=== PATIENT | female | born 1990 | race Caucasian/White ===

== ENCOUNTER 2020-03-28 21:55 | Emergency (ER) | payer MEDICAID, SELFPAY ==
[2020-03-28 22:10] VITALS: BP 148/74; PULSE 98; RESP 16; TEMP 37.1; O2SAT 97; BMI 33.4
--- NOTE | 2020-03-29 01:16 | CT_ITS ---
EXAMINATION: CT MASTOIDS WITHOUT CONTRAST CLINICAL INFORMATION: Right mastoid tenderness. COMPARISON: None TECHNIQUE: Contiguous helical images of the mastoids were obtained without IV contrast. Multiplanar reconstructions were performed. FINDINGS: No acute osseous abnormalities are demonstrable. The mastoid air cells are clear. The visualized portions of the brain are unremarkable. CT/CT mastoid IMPRESSION: No acute abnormalities demonstrable.
--- NOTE | 2020-03-29 01:18 | ED.EAR ---
HPI - Ear Problem General Chief complaint: Ear Problems Stated complaint: EAR PAIN Time Seen by Provider: 03/29/20 01:10 Source: patient Mode of arrival: ambulatory Limitations: no limitations History of Present Illness HPI Narrative: Patient comes to emergency room complaining of mastoid bone tenderness in the right side. It started approximately 2 days ago. Patient denies any ear drainage, no toothache. Patient has noticed that behind her ears very tender and swollen and in the front part of the earlobe as well. Denies any fever chills. MD Complaint: ear pain Related Data Previous Rx's Medication Instructions Recorded amoxicillin-pot clavulanate 1 tab PO Q12H #20 tab 03/29/20 [Augmentin] ibuprofen 600 mg PO TID PRN #14 tab 03/29/20 Allergies Allergy/AdvReac Type Severity Reaction Status Date / Time No Known Allergies Allergy Verified 03/28/20 22:12 [No Known Allergies*] Review of Systems Review of Systems: Constitutional : No Weight loss, No Fever, No Chills, No Night Sweats, No Fatigue, No Malaise ENT/Mouth : No Hearing loss, no ear pain, complaining of mastoid bone tenderness, No Nasal Congestion, No Sinus Pain, No Hoarseness, No sore throat, No Rhinorrhea, No Swallowing Difficulty Eyes: No Eye Pain, No Swelling, No Redness, No Foreign Body, No Discharge, No Vision Changes Cardiovascular : No Chest Pain, No SOB, No Dyspnea on Exertion, No Orthopnea, No Edema, No Palpitations Respiratory : No Cough, No Sputum, No Wheezing, No Smoke Exposure, No Dyspnea Gastrointestinal : No Nausea, No Vomiting, No Diarrhea, No Constipation, No abdominal Pain, No Hematochezia, No Melena Genitourinary : no irregular bleeding, No Dysuria, No Urinary Frequency, No Hematuria, No Urinary Incontinence, No Urgency, No Flank Pain, No Urinary Flow Changes, No Hesitancy Musculoskeletal : No joint pain, No Myalgias, No Joint Swelling Skin : No Skin Lesions, No rash Neuro : No Weakness, No Numbness, No Paresthesias, No Loss of Consciousness, No Dizziness, No Headache Psych : No Anxiety/Panic, No Depression, No SI/HI/AH/VH, No Social Issues, Heme/Lymph: No Bruising, No Bleeding,No Lymphadenopathy Endocrine : No Polyuria, No Polydipsia, No Temperature Intolerance PMFSH Past Medical History Medical History Atrophy of right kidney Social History Social History Advance Directives: No Advance Directives Information Provided: No Physical Exam Vital Signs: Vital Signs: Last Vital Signs Temp 98.7 F 03/28/20 22:10 Pulse 98 03/28/20 22:10 Resp 16 03/28/20 22:10 BP 148/74 H 03/28/20 22:10 Pulse Ox 97 03/28/20 22:10 Body Mass Index 33.4 Appearance: Alert. Oriented X3. No acute distress. Eyes: Pupils equal, round and reactive to light. ENT: Pharynx normal. Very mild erythema in the room right ear canal, both tympanic membranes within normal limits, patient has tenderness over the right mastoid bone Neck: Normal inspection. Neck supple. No lymph nodes noted. No crepitus CVS: Normal heart rate and rhythm. Pulses normal. Normal S1 and S2 Respiratory: No respiratory distress. Breath sounds normal. No Wheezing. No rales Abdomen: Soft and nontender. No rigidity. No distention. good BS x4 Skin: Skin warm and dry. Normal skin color. Normal skin turgor. Extremities: No lower extremity edema. No lower extremity edema. No Lacerations. No Rash Neuro: Oriented X 3. No motor deficit. No sensory deficit. Moving all extermities. No slurred speech. Course Course Course Narrative: I discussed the CT scan with the patient, no acute abnormalities, however given the patient's physical exam of miles erythema in the ear canal and auricular pain, will go ahead and treat her with antibiotics. Patient agrees with plan Discharge Plan Discharge Clinical Impression: Otalgia of right ear Patient Disposition: Home, Self-Care Instructions: Earache (ED) Additional Instructions: Please follow-up with your primary care physician tomorrow. If you have any worsening or new symptoms, please return to the emergency room or call 911 Prescriptions: New amoxicillin-pot clavulanate [Augmentin] 500-125 mg tablet 1 tab PO Q12H Qty: 20 RF: 0 ibuprofen 600 mg tablet 600 mg PO TID PRN (Reason: fever or pain) Qty: 14 RF: 0
[2020-03-29] MEDS: Amoxicillin/Potassium Clav 500 MG TABLET PO (02:49)
[2020-03-29] MEDS: Ibuprofen 600 MG TABLET PO (02:49)
[2020-03-29 02:53] VITALS: PULSE 76; RESP 18
== END 2020-03-29 02:54 | disposition home or self-care (01) ==
PROVIDERS: Emergency Provider Emergency Medicine; PCP Pediatrics
DX: H92.01 Otalgia, right ear (principal)
CPT/HCPCS: 70481; 99283; 99284

== ENCOUNTER 2021-11-28 11:43 | Outpatient (REF) | payer MEDICAID, SELFPAY ==
[2021-11-29 08:42] LABS: CT PCR NOT DETECTED (Not Detect.); NG PCR NOT DETECTED (Not Detect.)
[2021-11-29 10:49] LABS: BV Int Neg Control Negative (Negative); BV Int Pos Control Positive (Positive)
[2021-12-01 10:16] LABS: HPV mRNA E6/E7 rflx Not Detected (Not Detected)
== END 2021-11-28 11:44 | disposition home or self-care (01) ==
LOC: HO.LAB 11:43
PROVIDERS: Visit Provider Advanced Practice Midwife
DX: Z01.419 Encounter for gynecological examination (general) (routine) without abnormal findings (principal); Z11.51 Encounter for screening for human papillomavirus (HPV); Z11.3 Encounter for screening for infections with a predominantly sexual mode of transmission
CPT/HCPCS: 87480; 87491; 87510; 87591; 87624; 87660; 88142

== ENCOUNTER 2023-05-30 23:39 | Emergency (ER) | payer OTHER, SELFPAY ==
--- NOTE | ~2023-05-30 | XR_ITS ---
EXAMINATION: XR CHEST CLINICAL INFORMATION: Cough. COMPARISON: None available. TECHNIQUE: Frontal view of the chest was obtained. FINDINGS: The cardiomediastinal silhouette is normal. There is patchy right mid lung field infiltrative change. There appears to be minimal scarring at the right lung base. The lungs are otherwise clear. The bony structures and soft tissues are unremarkable. XR/XR chest 1V IMPRESSION: Patchy right mid lung field infiltrative change most consistent with pneumonia..
[2023-05-31 00:31] VITALS: BP 123/57; PULSE 106; RESP 16; TEMP 37.3; O2SAT 97; BMI 26.6
--- NOTE | 2023-05-31 00:46 | MHC.EDTECH ---
Patient brought into triage area,labs,strep,covid,and flu obtained and sent to lab.
[2023-05-31 00:52] LABS: MANUAL DIFF FLAG NO
[2023-05-31 00:58] LABS: IDNOW Serial# 08D9AD1C; Strep A Nucleic Acid Positive (Negative)
[2023-05-31 01:02] LABS: Basophils Absolute Auto 0.1 X10*3/uL (0.0-0.2); Basophils Percent Auto 0.3 % (0-2); Eosinophils Absolute Auto 0.1 X10*3/uL (0.0-0.4); Eosinophils Percent Auto 0.6 % (0-4); Hematocrit 42.9 % (37.0-47.0); Hemoglobin 14.5 g/dl (12.0-16.0); Imm Gran Abs Auto 0.12 X10*3/uL (0.00-0.03); Imm Gran Pct Auto 0.7 % (0.0-0.4); Lymphocytes Absolute Auto 1.1 X10*3/uL (1.2-4.9); Lymphocytes Percent Auto 5.9 % (20-40); Mean Corpuscular HGB Conc 33.8 g/dl (31.0-35.0); Mean Corpuscular Hemoglobin 28.5 pg (27.0-33.0); Mean Corpuscular Volume 84.4 fL (80.0-98.0); Mean Platelet Volume 10.8 fL (9.4-12.3); Monocytes Absolute Auto 1.2 X10*3/uL (0.1-1.2); Monocytes Percent Auto 6.9 % (2-11); Neutrophils Absolute Auto 15.2 x10*3/uL (2.0-8.3); Neutrophils Percent Auto 85.6 % (45-73); Platelet Count 256 X10*3/uL (160-400); Red Blood Count 5.08 X10*6/uL (4.20-5.50); Red Cell Distribution Width 14.2 % (11.0-16.0); White Blood Count 17.8 X10*3/uL (4.8-10.8)
[2023-05-31 01:08] LABS: Anion Gap 14 (12-20); Blood Urea Nitrogen 10 mg/dL (9-16); Calcium 9.4 mg/dL (8.4-10.2); Carbon Dioxide 25 mmol/L (22-29); Chloride 103 mmol/L (96-108); Creatinine Clr Calc Pharmacy 94.3; Estimated Glomerular Filt Rate > 60; Glucose Random 108 mg/dL (60-115); Potassium 3.8 mmol/L (3.3-5.1); Sodium 138 mmol/L (135-145)
[2023-05-31 01:14] LABS: COVID-19 Test Negative (Negative); IDNOW Serial# 152EDE1D; IDNOW Serial# 9DB6401D; Influenza A Negative (Negative); Influenza B2 Negative (Negative)
--- NOTE | 2023-05-31 01:38 | ED.GENADULT ---
HPI - General Adult General Chief complaint: Upper Respiratory Symptoms Stated complaint: Sore throat Time Seen by Provider: 05/31/23 01:32 Source: patient, RN notes reviewed and old records reviewed Mode of arrival: ambulatory Limitations: no limitations History of Present Illness HPI narrative: 32-year-old female presents for evaluation of sore throat, body aches and weakness. She reports that her symptoms started when she woke up this morning, less than 24 hours ago. She endorses some nausea without vomiting. Denies any sick contacts or recent travel Denies any chest pain or abdominal pain Has not taken any medications to help alleviate her symptoms Related Data Previous Rx's Medication Instructions Recorded valacyclovir 1 gram tablet 1,000 mg PO DAILY #30 tabs 11/28/21 amoxicillin 875 mg-potassium 1 tab PO BID #13 tabs 05/31/23 clavulanate 125 mg tablet azithromycin 250 mg tablet 250 mg PO DAILY 4 days #4 tabs 05/31/23 Allergies Allergy/AdvReac Type Severity Reaction Status Date / Time No Known Allergies Allergy Verified 05/31/23 00:30 [No Known Allergies*] Review of Systems Constitutional: Constitutional: Reports body ache(s), Reports chills, Reports fever(s), Reports malaise and Reports weakness ENT: Reports sore throat Cardiovascular: Cardiovascular: Denies chest pain and Denies dyspnea Respiratory: Respiratory: Reports cough and Denies dyspnea Gastrointestinal: Gastrointestinal: Reports abdominal pain, Reports nausea and Denies vomiting Integumentary/Breasts: Skin/Breast: Denies rash Neurologic: Reports weakness PMFSH Past Medical History Medical History (Updated 05/31/23 @ 01:40 by Mauricio Higgins) Carpal tunnel syndrome on right Atrophy of right kidney Surgical History (Updated 11/28/21 @ 09:34 by Myriam Morales MA) History of tonsillectomy and adenoidectomy H/O kidney removal Family History Family History (Updated 11/28/21 @ 09:35 by Myriam Morales MA) Mother Non-Hodgkin lymphoma Father Non-Hodgkin lymphoma Social History Social History (Updated 11/28/21 @ 09:35 by Myriam Morales MA) Patient Tobacco Use Status: Never used Tobacco Advance Directives: No Advance Directives Information Provided: Yes Physical Exam ED Vital Signs: Vital Signs - 24 hr 05/31/23 00:31 Temperature 99.1 F Pulse Rate 106 H Respiratory Rate 16 Blood Pressure 123/57 L Pulse Oximetry 97 Oxygen Delivery Method Room Air BMI result Body Mass Index 26.6 Const General: healthy appearing, comfortable, no acute distress, alert and awake Nutritional Appearance: well nourished Orientation/consciousness: patient oriented x3 HENMT Other: Erythematous retropharynx with bilateral tonsillar hypertrophy, whitish exudates noted on the right tonsil. No evidence of peritonsillar abscess Head: Yes normocephalic and Yes atraumatic Eyes Eyelids: Yes eyelids normal Conjunctivae: conjunctivae normal Sclerae: sclerae normal Corneas: corneas normal Pupils: Equal, round and reactive pupils present EOM: EOMs intact bilaterally Neck Neck: Yes full ROM Resp Effort & Inspection: normal respiratory effort, able to speak in complete sentences, no audible wheezes and not labored Auscultation: clear to auscultation bilaterally Cardio Rate: regular rate Rhythm: regular rhythm GI Inspection: No distended Palpation (GI): Soft to palpation, not firm, nontender, no guarding and not rigid Skin General skin exam: elasticity normal Neuro General: patient oriented x3 Cranial nerves: Yes Equal, round and reactive pupils present and Yes Bilaterally intact EOM present Cognition (Neuro): normal cognition Extrem Other: Moving all extremities well without any obvious deformities Medical Decision Making Medical Decision Making [facility] Narrative: Flu-like symptoms. She had labs that were significant for leukocytosis and left shift, no other significant CBC or chemistry findings. The patient did test positive for strep pharyngitis. She also has a right middle lung field infiltrate on x-ray. She has not hypoxic or tachypneic. No evidence of respiratory distress. The sciatica. Will discharge her with Augmentin which would cover community-acquired pneumonia as well as strep pharyngitis and azithromycin to cover atypical pneumonia Differential Diagnosis Differential Diagnoses: The differential diagnosis associated with the presentation includes Community-acquired pneumonia Pharyngitis Upper respiratory infection Strep pharyngitis Influenza COVID-19 Admission/Observation Consideration of admission/observation: Escalation of care including admission/observation considered Patient has both community-acquired pneumonia and strep pharyngitis, admission was considered but ultimately the patient is able tolerate p.o. antibiotics and she is not in any respiratory distress. Lab Data [facility] Lab Attestation statement: I reviewed the patient's lab results. Leukocytosis with a white count 17.8 and a notable left shift. No significant anemia. No electrolyte abnormalities 05/31/23 00:42 05/31/23 00:42 Labs: Lab Results 05/31/23 Range/Units 00:42 WBC 17.8 H (4.8-10.8) X10*3/uL RBC 5.08 (4.20-5.50) X10*6/uL Hgb 14.5 (12.0-16.0) g/dl Hct 42.9 (37.0-47.0) % MCV 84.4 (80.0-98.0) fL MCH 28.5 (27.0-33.0) pg MCHC 33.8 (31.0-35.0) g/dl RDW 14.2 (11.0-16.0) % Plt Count 256 (160-400) X10*3/uL MPV 10.8 (9.4-12.3) fL Immature Gran % (Auto) 0.7 H (0.0-0.4) % Neut % (Auto) 85.6 H (45-73) % Lymph % (Auto) 5.9 L (20-40) % [place] % (Auto) 6.9 (2-11) % Eos % (Auto) 0.6 (0-4) % Baso % (Auto) 0.3 (0-2) % Lymph # (Auto) 1.1 L (1.2-4.9) X10*3/uL [place] # (Auto) 1.2 (0.1-1.2) X10*3/uL Eos # (Auto) 0.1 (0.0-0.4) X10*3/uL Baso # (Auto) 0.1 (0.0-0.2) X10*3/uL Abs Immat Gran (auto) 0.12 H (0.00-0.03) X10*3/uL Absolute Neuts (auto) 15.2 H (2.0-8.3) x10*3/uL Absolute Nucleated RBC 0.000 (0.0-0.012) X10*3/uL Nucleated RBC % (auto) 0.0 (0.0-0.2) /100WBC Sodium 138 (135-145) mmol/L Potassium 3.8 (3.3-5.1) mmol/L Chloride 103 (96-108) mmol/L Carbon Dioxide 25 (22-29) mmol/L Anion Gap 14 (12-20) BUN 10 (9-16) mg/dL Creatinine 0.90 (0.5-1.4) mg/dL Estim Creat Clear Calc 94.3 Estimated GFR > 60 Random Glucose 108 (60-115) mg/dL Calcium 9.4 (8.4-10.2) mg/dL COVID-19 (RAEANN) Negative (Negative) COVID-19 Clin Com See Note Influenza Type A (JARETH) Negative (Negative) Influenza Type B (JARETH) Negative (Negative) Influenza A & B Note See Note S. pyogenes GrpA JARETH Positive A (Negative) Independent Interpretation I performed an independent interpretation of an: Plain X-Ray (Agree with Radiology interpretation, appreciate right midlung PNA) Radiology Impression Discussion of test interpretation with radiology: I have reviewed the radiologist's reading. (Findings consistent with right mid lung pneumonia) Discharge Plan Discharge Clinical Impression: Community acquired pneumonia, Acute streptococcal pharyngitis Patient Disposition: Home, Self-Care Instructions: Strep Throat (ED), Community Acquired Pneumonia (ED) Additional Instructions: Your workup in the ER today was significant for a right-sided pneumonia. You also tested positive for strep pharyngitis Take Augmentin twice daily for the next 7 days Take azithromycin daily for the next 4 days starting tomorrow, Friday as your 1st dose was given in the ER today Drink lots of fluids Use Motrin/Tylenol for fevers, body aches Follow-up with your doctor or return sooner for new or worsening symptoms Prescriptions: New azithromycin 250 mg tablet 250 mg PO DAILY 4 Days Qty: 4 0RF Rx Instructions: start on day 2 of therapy amoxicillin-pot clavulanate 875-125 mg tablet 1 tab PO BID Qty: 13 0RF No Action valacyclovir 1 gram tablet 1,000 mg PO DAILY Qty: 30 1RF Rx Instructions: take daily for 5 days for outbreak Stand Alone Forms: Work/School Release
[2023-05-31] MEDS: Azithromycin 500 MG TABLET PO (02:03)
[2023-05-31] MEDS: Amoxicillin/Potassium Clav 875 MG TABLET PO (02:03)
[2023-05-31] MEDS: Ibuprofen 600 MG TABLET PO (02:03)
--- NOTE | 2023-05-31 02:12 | PC.NURSE ---
pt medicated according to mar. pt calm and cooperative pt ambulatory at discharge provided with discharge packet verbalized understanding of discharge plan
== END 2023-05-31 02:13 | disposition home or self-care (01) ==
PROVIDERS: Emergency Provider Internal Medicine
DX: J18.9 Pneumonia, unspecified organism (principal); J02.0 Streptococcal pharyngitis; J02.9 Acute pharyngitis, unspecified; D72.829 Elevated white blood cell count, unspecified
CPT/HCPCS: 36415; 71045; 80048; 85025; 87502; 87635; 87651; 99283; 99284

== ENCOUNTER 2023-09-14 05:54 | Emergency (ER) | payer OTHER, SELFPAY ==
[2023-09-14 05:58] VITALS: BP 107/54; PULSE 92; RESP 18; TEMP 36.8; O2SAT 96; BMI 25.8
[2023-09-14 06:16] LABS: IDNOW Serial# 08D9AD1C; Strep A Nucleic Acid Positive (Negative)
--- NOTE | 2023-09-14 07:11 | ED_ITS ---
HPI - General Adult General Chief complaint: Upper Respiratory Symptoms Stated complaint: strep throat? Time Seen by Provider: 09/14/23 07:11 Source: patient Mode of arrival: ambulatory Limitations: no limitations History of Present Illness ED Provider: Kyra Garibay NP [facility] narrative: Patient is a 32-year-old female presenting to the emergency department with complaint of sore throat for the past 2 days, nausea since yesterday. Reports coworkers sick with similar symptoms. Feels similar to previous episodes of strep pharyngitis. Denies any cough, shortness of breath, vomiting or diarrhea. Denies fevers. Denies difficulty swallowing. MD complaint: sore throat Onset (ago): day(s) Quality: burning Pain Consistency: constant Relieving factors: none Exacerbating factors: eating Associated symptoms: nausea/vomiting (+nausea, -vomiting) Related Data Previous Rx's ?Medication ?Instructions ?Recorded valacyclovir 1 gram tablet 1,000 mg PO DAILY #30 tabs 11/28/21 amoxicillin 875 mg-potassium 1 tab PO BID #13 tabs 05/31/23 clavulanate 125 mg tablet azithromycin 250 mg tablet 250 mg PO DAILY 4 days #4 tabs 05/31/23 penicillin V potassium 500 mg 500 mg PO BID #20 tabs 09/14/23 tablet Allergies Allergy/AdvReac Type Severity Reaction Status Date / Time No Known Allergies Allergy Verified 09/14/23 06:00 [No Known Allergies*] Review of Systems Review of Systems: As per HPI. Yes all other systems are reviewed and are negative Constitutional: Constitutional: Reports as per HPI [facility] Past Medical History Medical History (Updated 09/14/23 @ 07:14 by Ina Garibay NP) Carpal tunnel syndrome on right Atrophy of right kidney Surgical History (Updated 11/28/21 @ 09:34 by Myriam Morales MA) History of tonsillectomy and adenoidectomy H/O kidney removal Family History Family History (Updated 11/28/21 @ 09:35 by Myriam Morales MA) Mother Non-Hodgkin lymphoma Father Non-Hodgkin lymphoma Social History Social History (Updated 11/28/21 @ 09:35 by Myriam Morales MA) Patient Tobacco Use Status: Never used Tobacco Advance Directives: No Advance Directives Information Provided: No Physical Exam ED Vital Signs: Vital Signs - 24 hr 09/14/23 05:58 Temperature 98.3 F Pulse Rate 92 Respiratory Rate 18 Blood Pressure 107/54 L Pulse Oximetry 96 Oxygen Delivery Method Room Air BMI result Body Mass Index 25.8 Vital signs have been reviewed and appear to be correct. Blood pressure normal. Heart rate normal. Respiratory rate normal. Temperature normal. Oxygen saturation normal. Const General: cooperative, healthy appearing and no acute distress Orientation/consciousness: oriented to person, oriented to place, oriented to time and patient oriented x3 Limitations: no limitations HENMT Head: Yes normocephalic and Yes atraumatic Ears: external ears normal and TM's normal bilaterally General nose exam: Normal external nose present Face and sinus: Yes face symmetric Mouth: Normal oral and palatal mucosa present, oropharynx normal, moist mucous membranes, no drooling and no trismus Throat: Yes uvula midline, Yes abnormal tonsil (erythema, exudate), No peritonsillar mass and No uvular edema Eyes Pupils: Equal, round and reactive pupils present Neck Neck: Yes normal visual inspection, Yes full ROM, Yes no lymphadenopathy and Yes supple Resp Effort & Inspection: normal respiratory effort and able to speak in complete sentences Auscultation: clear to auscultation bilaterally Cardio Rate: regular rate Rhythm: regular rhythm Heart sounds: S1 normal heart sound present and S2 normal heart sound present GI Palpation (GI): Soft to palpation and nontender Auscultation: normoactive bowel sounds General: Yes no CVA tenderness Back/Spine/Pelvis Back: no CVA tenderness Skin General skin exam: elasticity normal and turgor normal Neuro General: oriented to person, oriented to place, oriented to time, patient deb ented x3, moves all extremities, no focal motor deficits and CN's II-XI intact bilaterally Cranial nerves: Yes Equal, round and reactive pupils present Cognition (Neuro): normal cognition Extrem General: Yes full ROM, Yes no pedal edema and Yes no calf tenderness Psych Mental Status: mental status grossly normal Affect: normal affect Thought process: Normal thought process present Medical Decision Making Medical Decision Making MDM Narrative: Patient is a 32-year-old female presenting to the emergency department with complaint of sore throat for the past 2 days, nausea since yesterday. On exam patient is awake, A+Ox3, VS WNL, afebrile, normal neurological exam without focal deficits, physical exam findings as above. Given reported symptoms and physical exam findings, initial differential includes strep pharyngitis, viral infection. Do not suspect [employer]PA. Strep swab positive. Will treat with PCN VK, advised Tylenol/ibuprofen for fever/pain. Advised patient to complete full course even if symptoms improve. Discussed that she is contagious until she has taken abx for 24 hours. Instructed patient to f/u with PCP. Return precautions discussed. Patient verbalized understanding of and agreement with plan. Differential Diagnosis Differential Diagnoses: The differential diagnosis associated with the presentation includes As per [facility] Lab Data [facility] Lab Attestation statement: I reviewed the patient's lab results. As per [facility] Labs: Lab Results 09/14/23 Range/Units 06:03 S. pyogenes GrpA JARETH Positive A (Negative) External Record Review External record reviewed: Inpatient record, Office record and Outpatient record Prescription Management I considered prescription management with: Antibiotic Discharge Plan Discharge Clinical Impression: Acute streptococcal pharyngitis Patient Disposition: Home, Self-Care Instructions: Strep Throat (DC) Additional Instructions: You were evaluated in the emergency department today for a sore throat. Your strep swab was positive. You are being prescribed antibiotics, please complete the full course as prescribed even if your symptoms improve. You are contagious until you have taken the antibiotics for 24 hours. Be sure to drink adequate fluids. You can use Tylenol and ibuprofen per package directions as needed for discomfort. You can also gargle with warm salt water several times daily. Follow-up with your primary care provider this week. Return to the emergency department if you develop difficulty swallowing, worsening pain, shortness of breath, are unable to swallow your saliva, fever not improved with Tylenol/ibuprofen, or any other concerning symptoms. Prescriptions: New penicillin V potassium 500 mg tablet 500 mg PO BID Qty: 20 0RF No Action azithromycin 250 mg tablet 250 mg PO DAILY 4 Days Qty: 4 0RF Rx Instructions: start on day 2 of therapy amoxicillin-pot clavulanate 875-125 mg tablet 1 tab PO BID Qty: 13 0RF valacyclovir 1 gram tablet 1,000 mg PO DAILY Qty: 30 1RF Rx Instructions: take daily for 5 days for outbreak Stand Alone Forms: Work/School Release Print Language: Citizen Of [place]
[2023-09-14 07:30] VITALS: BP 107/54; PULSE 92; RESP 18; TEMP 36.8; O2SAT 96
== END 2023-09-14 07:31 | disposition home or self-care (01) ==
PROVIDERS: Emergency Provider Emergency Medicine
DX: J02.0 Streptococcal pharyngitis (principal); R11.0 Nausea
CPT/HCPCS: 87651; 99282; 99283

== ENCOUNTER 2023-09-26 06:34 | Emergency (ER) | payer OTHER, SELFPAY ==
--- NOTE | ~2023-09-26 | XR_ITS ---
EXAMINATION: XR CHEST CLINICAL INFORMATION: Pneumonia? Cough COMPARISON: Chest radiograph 05/31/2023 TECHNIQUE: Frontal view of the chest was obtained. FINDINGS: The lungs are adequately expanded. Previously noted patchy right mid lung opacities have resolved. Subtle opacity at the right costophrenic angle. No pleural effusions or pneumothorax. The cardiomediastinal silhouette is within normal limits. No acute osseous abnormality. XR/XR chest 1V IMPRESSION: Subtle opacity at the right costophrenic angle may represent infiltrate or scarring. Interval resolution of previously noted patchy right midlung opacities.
[2023-09-26 06:38] VITALS: BP 113/42; PULSE 79; RESP 18; TEMP 36.6; O2SAT 98; BMI 26.1
[2023-09-26 07:15] VITALS: BP 99/48; PULSE 79; RESP 19; TEMP 36.7; O2SAT 99
[2023-09-26 07:27] LABS: Influenza A PCR NEGATIVE (Negative); Influenza B PCR NEGATIVE (Negative); Resp Syncy Virus RNA Qual PCR NEGATIVE (Negative); SARS COV2 PCR INHOUSE NEGATIVE (Negative)
[2023-09-26 07:31] LABS: IDNOW Serial# 08D9AD1C; Strep A Nucleic Acid Negative (Negative)
--- NOTE | 2023-09-26 07:38 | ED_ITS ---
HPI - General Adult General Chief complaint: Upper Respiratory Symptoms Stated complaint: flu like Time Seen by Provider: 09/26/23 07:09 Source: patient Mode of arrival: ambulatory Limitations: no limitations History of Present Illness ED Provider: Newton Carrion PA-C HPI narrative: 32-year-old with past medical history of recurrent HSV presents to the ED for coughing, nasal congestion, and sore throat. Patient recently diagnosed with will strep half a week ago was treated antibiotics and improved. And then couple of days ago started having URI coughing nasal congestion with coughing y ellow-green sputum. Patient is a smoker. Patient denies any chest pain, leg swelling, calf pain, coughing up blood, or pleurisy. Related Data Previous Rx's ?Medication ?Instructions ?Recorded valacyclovir 1 gram tablet 1,000 mg PO DAILY #30 tabs 11/28/21 amoxicillin 875 mg-potassium 1 tab PO BID #13 tabs 05/31/23 clavulanate 125 mg tablet azithromycin 250 mg tablet 250 mg PO DAILY 4 days #4 tabs 05/31/23 penicillin V potassium 500 mg 500 mg PO BID #20 tabs 09/14/23 tablet amoxicillin 875 mg-potassium 1 tab PO Q12H 5 days #10 tabs 09/26/23 clavulanate 125 mg tablet azithromycin 250 mg tablet See Rx Instructions PO .COMPLEX #6 09/26/23 tabs betamethasone dipropionate 0.05 % 1 appl topical DAILY 2 weeks #45 09/26/23 topical cream grams Allergies Allergy/AdvReac Type Severity Reaction Status Date / Time No Known Allergies Allergy Verified 09/26/23 06:42 [No Known Allergies*] Review of Systems Review of Systems: Coughing, nasal congestion, coughing green yellow phlegm Yes all other systems are reviewed and are negative [facility] Past Medical History Medical History (Updated 09/27/23 @ 00:01 by Bruce Quintana) Carpal tunnel syndrome on right Atrophy of right kidney Surgical History (Updated 11/28/21 @ 09:34 by Myriam Morales MA) History of tonsillectomy and adenoidectomy H/O kidney removal Family History Family History (Updated 11/28/21 @ 09:35 by Myriam Morales MA) Mother Non-Hodgkin lymphoma Father Non-Hodgkin lymphoma Social History Social History (Updated 11/28/21 @ 09:35 by Myriam Morales MA) Patient Tobacco Use Status: Never used Tobacco Advance Directives: No Advance Directives Information Provided: No Physical Exam ED Vital Signs: Vital Signs - 24 hr 09/26/23 06:38 09/26/23 07:15 Temperature 97.9 F 98.0 F Pulse Rate 79 79 Respiratory Rate 18 19 Blood Pressure 113/42 L 99/48 L Pulse Oximetry 98 99 Oxygen Delivery Method Room Air Room Air BMI result Body Mass Index 26.1 Const General: cooperative, healthy appearing, comfortable, no acute distress, well developed, alert, awake and Physically active Orientation/consciousness: oriented to time and patient oriented x3 HENDE Head: Yes normal to inspection, Yes No palpable skull fracture present, Yes normocephalic, Yes atraumatic and No abrasion Ears: hearing grossly normal bilaterally, external ears normal, TM's normal bilaterally, TM normal on the right, TM normal on the left, EAC's normal, mastoids normal and no periauricular adenopathy Throat: Yes posterior oropharynx normal, Yes tonsils normal and Yes uvula midline Eyes General: appearance normal, both eyes and all related structures Neck Neck: Yes normal visual inspection, Yes full ROM, Yes no lymphadenopathy, Yes no meningeal signs, Yes trachea midline, Yes supple, No anterior neck swelling and No tender Chest Chest palpation & inspection: normal inspection of the chest and normal palpation of entire chest wall Resp Effort & Inspection: normal respiratory effort and able to speak in complete sentences Auscultation: clear to auscultation bilaterally Cardio Jugular venous distension: no JVD Heart sounds: S1 normal heart sound present and S2 normal heart sound present GI Inspection: Yes normal to inspection Palpation (GI): Soft to palpation, not firm, nontender, no guarding and not rigid General: No CVA tenderness and Yes no CVA tenderness Back/Spine/Pelvis Back: no CVA tenderness, No CVA tenderness and No back tenderness Skin General skin exam: no rashes or lesions noted, elasticity normal and turgor normal Neuro General: oriented to time, patient oriented x3, gait normal, tone normal, moves all extremities, Normal light touch and pain sensation, no meningeal signs, no focal motor deficits, CN's II-XI intact bilaterally and normal sensation to monofilament Extrem Other: Bilateral lower extremity negative for swelling, pitting edema, calf tenderness General: Yes normal to inspection, Yes full ROM and Yes capillary refill normal Psych Appearance: grossly normal, well kempt and not disheveled Medical Decision Making Medical Decision Making [facility] Narrative: 32-year-old female history of pneumonia in the past and HSV presents to the ED for coughing, sore throat, nasal congestion. COVID influenza RSV strep test came back negative due to history of pneumonia and yellow green phlegm was sent for chest x-ray. 9:07am: X-ray positive for pneumonia. Patient will be discharged antibiotics. Patient also asking for betamethasone cream for her psoriasis flare-up. Patient explained worrisome signs and informed to return to the ED if she has them Differential Diagnosis Differential Diagnoses: The differential diagnosis associated with the presentation includes (Pneumonia, strep, COVID, influenza, RSV) Admission/Observation Consideration of admission/observation: Escalation of care including admission/observation considered Lab Data [facility] Lab Attestation statement: I reviewed the patient's lab results. Labs: Lab Results 09/26/23 09/26/23 Range/Units 06:47 07:16 Influenza Type A (PCR) NEGATIVE (Negative) Influenza Type B (PCR) NEGATIVE (Negative) RSV RNA Qual (PCR) NEGATIVE (Negative) SARS-CoV-2 RNA (RT-PCR) NEGATIVE (Negative) S. pyogenes GrpA JARETH Negative (Negative) Independent Interpretation I performed an independent interpretation of an: Plain X-Ray Radiology Impression Discussion of test interpretation with radiology: I have reviewed the radiologist's reading. Independent Historian Clinical information obtained from an independent historian. History obtained from or confirmed by: Other (Patient) External Record Review External record reviewed: Other (Prior visits) Prescription Management I considered prescription management with: Antibiotic and Other (Steroid cream) Discharge Plan Discharge Clinical Impression: Pneumonia Patient Disposition: Home, Self-Care Instructions: Psoriasis (ED), Community Acquired Pneumonia (ED) Additional Instructions: You will be discharged with antibiotics. Return to the ED immediately for any chest pain, shortness of breath, coughing up blood, weakness, dizziness, or any other concerning symptoms. Prescriptions: New amoxicillin-pot clavulanate 875-125 mg tablet 1 tab PO Q12H 5 Days Qty: 10 0RF azithromycin 250 mg tablet See Rx Instructions .ROUTE .COMPLEX Qty: 6 0RF Rx Instructions: For 250 mg dose pack: take 500 mg today (day 1), then 250 mg for 4 days (days 2-5) betamethasone dipropionate 0.05 % cream 1 appl topical DAILY 14 Days Qty: 45 0RF No Action penicillin V potassium 500 mg tablet 500 mg PO BID Qty: 20 0RF azithromycin 250 mg tablet 250 mg PO DAILY 4 Days Qty: 4 0RF Rx Instructions: start on day 2 of therapy amoxicillin-pot clavulanate 875-125 mg tablet 1 tab PO BID Qty: 13 0RF valacyclovir 1 gram tablet 1,000 mg PO DAILY Qty: 30 1RF Rx Instructions: take daily for 5 days for outbreak Stand Alone Forms: Work/School Release Interventions: ED Discharge Assessment Last Done: 09/26/23 09:38 Discharge Date/Time: 09/26/23 09:39 Print Language: Tongan
[2023-09-26 09:33] VITALS: BP 136/57; PULSE 73; RESP 20; TEMP 36.9; O2SAT 98
[2023-09-26 09:38] VITALS: BP 136/57; PULSE 73; RESP 20; TEMP 36.9; O2SAT 98
== END 2023-09-26 09:39 | disposition home or self-care (01) ==
PROVIDERS: Physician Assistant; Emergency Provider Emergency Medicine
DX: J18.9 Pneumonia, unspecified organism (principal); B00.9 Herpesviral infection, unspecified; R05.9 Cough, unspecified; R09.81 Nasal congestion; J02.9 Acute pharyngitis, unspecified; Z03.818 Encounter for observation for suspected exposure to other biological agents ruled out; F17.210 Nicotine dependence, cigarettes, uncomplicated
CPT/HCPCS: 0241U; 71045; 87651; 99283

== ENCOUNTER 2024-07-17 23:20 | Emergency (ER) | payer OTHER, SELFPAY ==
[2024-07-17 23:24] VITALS: BP 118/52; PULSE 89; RESP 16; TEMP 36.6; O2SAT 98; BMI 31.9
[2024-07-17 23:51] LABS: Appearance Urine Turbid; Color Urine Yellow; Glucose Urine UA Negative (Negative); Leukocyte Esterase Urine Moderate (2+) (Negative); Nitrite Urine Negative (Negative); PH 5.5 (5.0-9.0); Specific Gravity - Urine >= 1.030 (1.005-1.025); UMIC TRIGGER UACC YES; Urine Blood Small (1+) (Negative); Urine Ketones Trace mg/dL (Negative); Urine Protein 100 (2+) mg/dL (Neg-Trace)
[2024-07-17 23:52] LABS: UPreg QC Valid YES; Urine Pregnancy NEGATIVE (NEGATIVE)
[2024-07-17 23:56] LABS: Bacteria Urine 4+ (None Seen); UACC Culture Trigger YES; WBC Urine >50 /HPF (0-5)
[2024-07-18 00:18] VITALS: BP 108/39; PULSE 69; RESP 16; TEMP 36.4; O2SAT 99
[2024-07-18 00:22] LABS: MANUAL DIFF FLAG NO
[2024-07-18 00:32] LABS: Basophils Absolute Auto 0.1 X10*3/uL (0.0-0.2); Basophils Percent Auto 0.6 % (0-2); Eosinophils Absolute Auto 0.6 X10*3/uL (0.0-0.4); Eosinophils Percent Auto 5.6 % (0-4); Hematocrit 39.2 % (37.0-47.0); Hemoglobin 13.3 g/dl (12.0-16.0); Imm Gran Abs Auto 0.04 X10*3/uL (0.00-0.03); Imm Gran Pct Auto 0.3 % (0.0-0.4); Lymphocytes Percent Auto 26.1 % (20-40); Mean Corpuscular HGB Conc 33.9 g/dl (31.0-35.0); Mean Corpuscular Hemoglobin 28.8 pg (27.0-33.0); Mean Corpuscular Volume 84.8 fL (80.0-98.0); Mean Platelet Volume 10.5 fL (9.4-12.3); Monocytes Absolute Auto 1.2 X10*3/uL (0.1-1.2); Monocytes Percent Auto 10.4 % (2-11); Neutrophils Absolute Auto 6.5 x10*3/uL (2.0-8.3); Platelet Count 238 X10*3/uL (160-400); Red Blood Count 4.62 X10*6/uL (4.20-5.50); Red Cell Distribution Width 14.5 % (11.0-16.0); White Blood Count 11.5 X10*3/uL (4.8-10.8)
[2024-07-18 00:41] LABS: Anion Gap 9 (12-20); Blood Urea Nitrogen 10 mg/dL (9-16); Calcium 8.8 mg/dL (8.4-10.2); Carbon Dioxide 25 mmol/L (22-29); Chloride 111 mmol/L (96-108); Creatinine Clr Calc Pharmacy 123.8; Estimated Glomerular Filt Rate > 60; Glucose Random 95 mg/dL (60-115); Potassium 4.1 mmol/L (3.3-5.1); Sodium 141 mmol/L (135-145)
--- NOTE | 2024-07-18 00:51 | ED_ITS ---
HPI - Female Genitourinary General Chief complaint: Urogenital-Female Stated complaint: UTI? Time Seen by Provider: 07/18/24 00:24 Source: patient, RN notes reviewed and old records reviewed Mode of arrival: ambulatory Limitations: no limitations History of Present Illness ED Provider: Gisela PLUNKETT Narrative: 33-year-old female presents for evaluation of multiple complaints including sinus congestion for the last 3 days. She also complains of burning with urination and urgency for the last 10 days. She reports that she only has 1 kidney Denies any fevers, chills, flank pain pain Denies any blood in the urine Denies any vaginal bleeding or discharge No other complaints or concerns at this time Related Data Previous Rx's ?Medication ?Instructions ?Recorded valacyclovir 1 gram tablet 1,000 mg PO DAILY #30 tabs 11/28/21 amoxicillin 875 mg-potassium 1 tab PO BID #13 tabs 05/31/23 clavulanate 125 mg tablet azithromycin 250 mg tablet 250 mg PO DAILY 4 days #4 tabs 05/31/23 penicillin V potassium 500 mg 500 mg PO BID #20 tabs 09/14/23 tablet amoxicillin 875 mg-potassium 1 tab PO Q12H 5 days #10 tabs 09/26/23 clavulanate 125 mg tablet azithromycin 250 mg tablet See Rx Instructions PO .COMPLEX #6 09/26/23 tabs betamethasone dipropionate 0.05 % 1 appl topical DAILY 2 weeks #45 09/26/23 topical cream grams cefuroxime axetil 500 mg tablet 500 mg PO Q12H #14 tabs 07/18/24 Allergies Allergy/AdvReac Type Severity Reaction Status Date / Time No Known Allergies Allergy Verified 07/17/24 23:27 [No Known Allergies*] Review of Systems 2 Constitutional: Constitutional: Denies body ache(s), Denies chills and Denies fever(s) ENT: Denies vertigo, Denies dizziness, Reports sinus pain, Reports sinus pressure and Denies sore throat Cardiovascular: Cardiovascular: Denies chest pain and Denies dyspnea Respiratory: Respiratory: Denies cough and Denies dyspnea Gastrointestinal: Gastrointestinal: Denies abdominal pain, Denies nausea and Denies vomiting Genitourinary: Genitourinary: Reports dysuria, Denies pelvic pain and Reports urinary urgency Neurologic: Denies vertigo and Denies dizziness [facility] Past Medical History Medical History (Updated 07/18/24 @ 00:52 by Mauricio Higgins) Carpal tunnel syndrome on right Atrophy of right kidney Surgical History (Updated 11/28/21 @ 09:34 by Myriam Morales MA) History of tonsillectomy and adenoidectomy H/O kidney removal Family History Family History (Updated 11/28/21 @ 09:35 by Myriam Morales MA) Mother Non-Hodgkin lymphoma Father Non-Hodgkin lymphoma Social History Social History (Updated 11/28/21 @ 09:35 by Myriam Morales MA) Patient Tobacco Use Status: Never used Tobacco Smoked in Last 30 Days: No Use of substances other than those prescribed or required for medical reasons: No Advance Directives: No Do you have a plan to hurt others: No Plan Patient : No Physical Exam 2 Vital Signs: Vital Signs: Last Vital Signs Temp 97.5 F 07/18/24 01:08 Pulse 69 07/18/24 01:08 Resp 16 07/18/24 01:08 BP 108/39 L 07/18/24 01:08 Pulse Ox 99 07/18/24 01:08 O2 Del Method Room Air 07/18/24 01:08 BMI result Body Mass Index 31.9 Const: General: healthy appearing, comfortable, no acute distress, alert and awake Nutritional Appearance: well nourished Orientation/consciousness: p atient oriented x3 HEENT: Head: Yes normocephalic and Yes atraumatic Eyes: Eyelids: Yes eyelids normal Conjunctivae: conjunctivae normal S clerae: sclerae normal Corneas: corneas normal Pupils: Equal, round and reactive pupils present EOM: EOMs intact bilaterally Neck: Neck: Yes full ROM Resp: Effort & Inspection: normal respiratory effort, able to speak in complete sentences and not labored GI: Inspection: No distended Palpation (GI): Soft to palpation, not firm, nontender, no guarding and not rigid : General: Yes no CVA tenderness Back/Spine/Pelvis: Back: no CVA tenderness Skin: General skin exam: elasticity normal Neuro: General: patient oriented x3 Cranial nerves: Yes Equal, round and reactive pupils present and Yes Bilaterally intact EOM present Cognition (Neuro): normal cognition Medications Administered Discontinued Medications Generic Name Dose Route Start Last Admin Trade Name Freq PRN Reason Stop Dose Admin Cefuroxime Axetil 500 mg 07/18/24 00:51 07/18/24 01:06 Cefuroxime Axetil 500 Mg Tablet PO 07/18/24 00:52 500 mg ONCE ONE Administration Medical Decision Making Medical Decision Making [facility] Narrative: 33-year-old female presents for evaluation of multiple complaints including UTI symptoms well as sinusitis symptoms. Overall she was well-appearing, she was a very mild leukocytosis. No significant anemia. chemistries without concerning findings. Renal function is within normal limits. The patient does not fact have a UTI, vital signs are stable. We will treat with cephalexin 500 mg b.i.d. x7 days, this will cover urine as well as any potential sinus infection. Her sinusitis is likely viral as it has only been a few days, but he will treat her regardless given the UTI symptoms Differential Diagnosis Differential Diagnoses: The differential diagnosis associated with the presentation includes UTI Upper respiratory infection Acute sinusitis COVID-19 Influenza Lab Data [facility] Lab Attestation statement: I reviewed the patient's lab results. As above 07/18/24 00:17 07/18/24 00:17 Labs: Lab Results 07/17/24 07/18/24 Range/Units 23:42 00:17 WBC 11.5 H (4.8-10.8) X10*3/uL RBC 4.62 (4.20-5.50) X10*6/uL Hgb 13.3 (12.0-16.0) g/dl Hct 39.2 (37.0-47.0) % MCV 84.8 (80.0-98.0) fL MCH 28.8 (27.0-33.0) pg MCHC 33.9 (31.0-35.0) g/dl RDW 14.5 (11.0-16.0) % Plt Count 238 (160-400) X10*3/uL MPV 10.5 (9.4-12.3) fL Immature Gran % (Auto) 0.3 (0.0-0.4) % Neut % (Auto) 57.0 (45-73) % Lymph % (Auto) 26.1 (20-40) % [place] % (Auto) 10.4 (2-11) % Eos % (Auto) 5.6 H (0-4) % Baso % (Auto) 0.6 (0-2) % Lymph # (Auto) 3.0 (1.2-4.9) X10*3/uL [place] # (Auto) 1.2 (0.1-1.2) X10*3/uL Eos # (Auto) 0.6 H (0.0-0.4) X10*3/uL Baso # (Auto) 0.1 (0.0-0.2) X10*3/uL Abs Immat Gran (auto) 0.04 H (0.00-0.03) X10*3/uL Absolute Neuts (auto) 6.5 (2.0-8.3) x10*3/uL Absolute Nucleated RBC 0.000 (0.0-0.012) X10*3/uL Nucleated RBC % (auto) 0.0 (0.0-0.2) /100WBC Sodium 141 (135-145) mmol/L Potassium 4.1 (3.3-5.1) mmol/L Chloride 111 H (96-108) mmol/L Carbon Dioxide 25 (22-29) mmol/L Anion Gap 9 L (12-20) BUN 10 (9-16) mg/dL Creatinine 0.74 (0.5-1.4) mg/dL Estim Creat Clear Calc 123.8 Estimated GFR > 60 Random Glucose 95 (60-115) mg/dL Calcium 8.8 D (8.4-10.2) mg/dL Urine Color Yellow Urine Appearance Turbid Urine pH 5.5 (5.0-9.0) Ur Specific [place] >= 1.030 H (1.005-1.025) Urine Protein 100 (2+) H (Neg-Trace) mg/dL Urine Glucose (UA) Negative (Negative) mg/dL Urine Ketones Trace (Negative) mg/dL Urine Blood Small (1+) H (Negative) Urine Nitrite Negative (Negative) Ur Leukocyte Esterase Moderate (2+) H (Negative) Urine RBC 11-20 H (0-2) /HPF Urine WBC >50 H (0-5) /HPF Ur Squamous Epith Cells 11-20 (0-2) /HPF Urine Bacteria 4+ (None Seen) Hyaline Casts 3-5 (0-2) /LPF Urine Test NEGATIVE (NEGATIVE) Discharge Plan Discharge Clinical Impression: Urinary tract infection, Upper respiratory infection Patient Disposition: Home, Self-Care Instructions: Urinary Tract Infection in Women (ED), Upper Respiratory Infection (ED) Additional Instructions: Your blood tests were reassuring today. Your urine sample did appear to show a UTI. Take cefuroxime twice daily for 7 days. This will cover both UTI symptoms and sinus infection You may also use an [id number] decongestant. Follow-up with your primary doctor, return for new or worsening symptoms Prescriptions: New cefuroxime axetil 500 mg tablet 500 mg PO Q12H Qty: 14 0RF No Action penicillin V potassium 500 mg tablet 500 mg PO BID Qty: 20 0RF azithromycin 250 mg tablet 250 mg PO DAILY 4 Days Qty: 4 0RF Rx Instructions: start on day 2 of therapy amoxicillin-pot clavulanate 875-125 mg tablet 1 tab PO BID Qty: 13 0RF amoxicillin-pot clavulanate 875-125 mg tablet 1 tab PO Q12H 5 Days Qty: 10 0RF azithromycin 250 mg tablet See Rx Instructions .ROUTE .COMPLEX Qty: 6 0RF Rx Instructions: For 250 mg dose pack: take 500 mg today (day 1), then 250 mg for 4 days (days 2-5) betamethasone dipropionate 0.05 % cream 1 appl topical DAILY 14 Days Qty: 45 0RF valacyclovir 1 gram tablet 1,000 mg PO DAILY Qty: 30 1RF Rx Instructions: take daily for 5 days for outbreak Interventions: ED Discharge Assessment Last Done: 07/18/24 01:08 Discharge Date/Time: 07/18/24 01:10 Print Language: Estonian
[2024-07-18] MEDS: cefuroxime axetiL 500 MG TABLET PO (01:06)
[2024-07-18 01:08] VITALS: BP 108/39; PULSE 69; RESP 16; TEMP 36.4; O2SAT 99
== END 2024-07-18 01:10 | disposition home or self-care (01) ==
PROVIDERS: Emergency Provider Internal Medicine; PCP Internal Medicine
DX: J06.9 Acute upper respiratory infection, unspecified (principal); N39.0 Urinary tract infection, site not specified; R09.81 Nasal congestion
CPT/HCPCS: 36415; 80048; 81001; 81025; 85025; 87086; 87088; 87186; 99283; 99284

== ENCOUNTER 2025-03-23 19:45 | Emergency (ER) | payer OTHER, SELFPAY ==
--- NOTE | ~2025-03-23 | XR_ITS ---
CLINICAL HISTORY: pain x 1 month 3 views right foot Comparison: None Findings: No fractures or dislocations. No joint effusion. No significant arthritic change. Small plantar and Achilles calcaneal enthesophytes are present. No radiopaque foreign body. Impression: 1. Heel spurs as described above. Otherwise, unremarkable right foot This document has been electronically signed by: Tommy Doan MD on 03/23/2025 20:19:27
[2025-03-23 19:47] VITALS: BP 120/58; PULSE 88; RESP 16; TEMP 36.9; O2SAT 97; BMI 30.4
--- NOTE | 2025-03-23 19:47 | ED.GENADULT ---
HPI - General Adult General Chief complaint: Extremity Problem Stated complaint: right foot pain Time Seen by Provider: 03/23/25 21:47 Source: patient Mode of arrival: ambulatory Limitations: no limitations History of Present Illness ED Provider: Dr. Pendleton [facility] narrative: This is a 34-year-old female presented hospital today for right foot pain. This has been going on for a month. Complaining of pain in her heel that radiates up to her acutely send him. Denies any trauma. Related Data Previous Rx's ?Medication ?Instructions ?Recorded valacyclovir 1 gram tablet 1,000 mg PO DAILY #30 tabs 11/28/21 amoxicillin 875 mg-potassium 1 tab PO BID #13 tabs 05/31/23 clavulanate 125 mg tablet azithromycin 250 mg tablet 250 mg PO DAILY 4 days #4 tabs 05/31/23 penicillin V potassium 500 mg 500 mg PO BID #20 tabs 09/14/23 tablet amoxicillin 875 mg-potassium 1 tab PO Q12H 5 days #10 tabs 09/26/23 clavulanate 125 mg tablet azithromycin 250 mg tablet See Rx Instructions PO .COMPLEX #6 09/26/23 tabs betamethasone dipropionate 0.05 % 1 appl topical DAILY 2 weeks #45 09/26/23 topical cream grams cefuroxime axetil 500 mg tablet 500 mg PO Q12H #14 tabs 07/18/24 ampicillin 500 mg capsule 500 mg PO QID 7 days #28 caps 07/23/24 acetaminophen 500 mg tablet 1,000 mg (2 x 500 mg) PO Q8H 20 03/23/25 days #120 tabs ibuprofen 400 mg tablet 400 mg PO Q8H 10 days #30 tabs 03/23/25 methylprednisolone 4 mg tablets in 4 mg PO PER PKG DIR #21 ea 03/23/25 a dose pack (Medrol (José Miguel)) Allergies Allergy/AdvReac Type Severity Reaction Status Date / Time No Known Allergies (No Known Allergy Verified 03/23/25 19:48 Allergies*) Review of Systems Review of Systems: Pertinent review of systems as mentioned in [facility]. All other system otherwise negative. [facility] Past Medical History [facility] Narrative: Medical history as mentioned in HPI Medical History (Updated 03/23/25 @ 22:20 by Vanessa Pendleton, DO) Carpal tunnel syndrome on right Atrophy of right kidney Surgical History (Updated 11/28/21 @ 09:34 by Myriam Morales MA) History of tonsillectomy and adenoidectomy H/O kidney removal Family History Family History (Updated 11/28/21 @ 09:35 by Myriam Morales MA) Mother Non-Hodgkin lymphoma Father Non-Hodgkin lymphoma Social History Social History (Updated 11/28/21 @ 09:35 by Myriam Morales MA) Patient Tobacco Use Status: Never used Tobacco Advance Directives: No Advance Directives Information Provided: Yes Physical Exam ED Exam Exam: General: Pleasant, no distress, interacting appropriately Head: Normacephalic, atraumatic Extremities: Tenderness on the heel and Achilles tendon area. Neurological: Awake and alert, no facial droop noted Skin: Warm and dry Psychiatric: Appropriate mood and thoughts Vital Signs: Vital Signs - 24 hr 03/23/25 19:47 Temperature 98.4 F Pulse Rate 88 Respiratory Rate 16 Blood Pressure 120/58 L Pulse Oximetry 97 Oxygen Delivery Method Room Air BMI result Body Mass Index 30.4 Course Course Course Narrative: This is a rapid medical exam performed by Kyra Garibay NP: Additional HPI, ROS, PE not included below will be deferred to primary provider. Patient is a 34y/o F presenting with c/o R foot pain and swelling for the past month. Unsure injury. Plan: xray Medical Decision Making Medical Decision Making [facility] Narrative: 34-year-old female presented hospital today for right-sided foot pain. X-ray was negative for any signs of fracture. I suspect this is plantar fasciitis. Patient will be discharged with Tylenol ibuprofen and a Medrol Dosepak to take. Encouraged her to follow up with Podiatry. Agrees and understands this plan all questions were addressed. Differential Diagnosis Differential Diagnoses: The differential diagnosis associated with the presentation includes Plantar fasciitis Independent Interpretation I performed an independent interpretation of an: Plain X-Ray Radiology Impression Discussion of test interpretation with radiology: I have reviewed the radiologist's reading. Discharge Plan Discharge Clinical Impression: Plantar fasciitis Patient Disposition: Home, Self-Care Instructions: Plantar Fasciitis (ED), Plantar Fasciitis Exercises (ED) Prescriptions: New acetaminophen 500 mg tablet 1,000 mg PO Q8H 20 Days Qty: 120 0RF ibuprofen 400 mg tablet 400 mg PO Q8H 10 Days Qty: 30 0RF methylprednisolone [Medrol (José Miguel)] 4 mg tablets,dose pack 4 mg PO PER PKG DIR Qty: 21 0RF No Action penicillin V potassium 500 mg tablet 500 mg PO BID Qty: 20 0RF azithromycin 250 mg tablet 250 mg PO DAILY 4 Days Qty: 4 0RF Rx Instructions: start on day 2 of therapy amoxicillin-pot clavulanate 875-125 mg tablet 1 tab PO BID Qty: 13 0RF amoxicillin-pot clavulanate 875-125 mg tablet 1 tab PO Q12H 5 Days Qty: 10 0RF azithromycin 250 mg tablet See Rx Instructions .ROUTE .COMPLEX Qty: 6 0RF Rx Instructions: For 250 mg dose pack: take 500 mg today (day 1), then 250 mg for 4 days (days 2-5) betamethasone dipropionate 0.05 % cream 1 appl topical DAILY 14 Days Qty: 45 0RF cefuroxime axetil 500 mg tablet 500 mg PO Q12H Qty: 14 0RF ampicillin 500 mg capsule 500 mg PO QID 7 Days Qty: 28 0RF valacyclovir 1 gram tablet 1,000 mg PO DAILY Qty: 30 1RF Rx Instructions: take daily for 5 days for outbreak Referrals: [facility] [place] Podiatry [Provider Group, Podiatry] Discharge Date/Time: 03/23/25 22:33 Print Language: Greenlandic
--- OUTSIDE RECORDS SUMMARY | 2025-03-23 21:37 | XMS_ITS | Clinical Summary ---
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 Name Role Phone Unavailable Primary Care Provider Unavailabl e Social History Tobacco Use Types Packs/Day Years Used Date Smoking Tobacco: Never Assessed Comments Unknown Sex and Gender Information Value Date Recorded Sex Assigned at Not on file Legal Sex Female 12:59 PM EST Gender Identity Not on file Sexual Orientation Not on file Plan of Treatment Health Maintenance Due Date Last Done Comments DTaP,Tdap,and Td Vaccines (1 - Tdap) 11/30/2007 Hepatitis B Vaccines (1 of 3 - 19+ 3-dose series) 11/30/2007 Cervical Cancer Screening: P ap Smear 2009 HPV Vaccines (1 - 3-dose SCD M series) 11/30/2015 Depression Screening 04/07/2024 COVID-19 Vaccine ( - 2024-2 6 season) 2024 Influenza Vaccine (#1) 2024 RSV Immunization Adult Patie nts (1 - 1-dose 75+ series) 11/30/2063 HIB Vaccines Aged Out No longer eligi ble based on patient's age to complete this topic Hepatitis A Vaccines Aged Out No long er eligible based on patient's age to complete this topic IPV Vaccines Aged Out No longer eligi ble based on patient's age to complete this topic MMR Vaccines Aged Out No longer eligi ble based on patient's age to complete this topic Meningococcal ACWY Vaccine Aged Out N o longer eligible based on patient's age to complete this topic Meningococcal B Vaccine Aged Out No l onger eligible based on patient's age to complete this topic Pneumococcal Vaccine: Pediat rics (0 to 5 Years) and At-Risk Patients (6 to 49 Years) Aged Out No longer eligible b ased on patient's age to complete this topic RSV Immunization Patients Un nhi 20 months Aged Out No longer eligible b ased on patient's age to complete this topic Varicella Vaccines Aged Out No longer eligible based on patient's age to complete this topic
== END 2025-03-23 22:33 | disposition home or self-care (01) ==
PROVIDERS: Emergency Provider Student in an Organized Health Care Education/Training Program
DX: M79.671 Pain in right foot (principal)
CPT/HCPCS: 73630; 99281; 99283

== ENCOUNTER → 2025-03-23 19:48 | Outpatient (BNV) | payer OTHER, SELFPAY | PROVIDERS: Visit Provider Radiology Diagnostic Radiology | DX: M77.8 Other enthesopathies, not elsewhere classified (principal) | CPT/HCPCS: 73630 ==

== ENCOUNTER 2025-03-24 04:32 | Emergency (ER) | payer OTHER, SELFPAY ==
[2025-03-24 04:37] VITALS: BP 137/64; PULSE 81; RESP 18; TEMP 36.5; O2SAT 98; BMI 32.9
--- NOTE | 2025-03-24 04:54 | ED.DENTAL ---
HPI - Dental/Oral General Chief complaint: Dental/Oral Stated complaint: Abscess in mouth Time Seen by Provider: 03/24/25 04:41 Source: patient Mode of arrival: ambulatory Limitations: no limitations History of Present Illness ED Provider: Israel ARGUELLO HPI Narrative: The patient is a 34-year-old female who presents with swelling in the lower left jaw that began yesterday. The patient reports she broke her 1st molar on that side approximately 1?2?weeks ago while eating, denies trauma. She notes associated nausea but denies fever and vomiting. She has a scheduled dental appointment today at?3:30?PM a presenting to the ED as the swelling dramatically increased in the past 4-6 hours. Patient is requesting antibiotic therapy and ibuprofen. Related Data Previous Rx's ?Medication ?Instructions ?Recorded valacyclovir 1 gram tablet 1,000 mg PO DAILY #30 tabs 11/28/21 amoxicillin 875 mg-potassium 1 tab PO BID #13 tabs 05/31/23 clavulanate 125 mg tablet azithromycin 250 mg tablet 250 mg PO DAILY 4 days #4 tabs 05/31/23 penicillin V potassium 500 mg 500 mg PO BID #20 tabs 09/14/23 tablet amoxicillin 875 mg-potassium 1 tab PO Q12H 5 days #10 tabs 09/26/23 clavulanate 125 mg tablet azithromycin 250 mg tablet See Rx Instructions PO .COMPLEX #6 09/26/23 tabs betamethasone dipropionate 0.05 % 1 appl topical DAILY 2 weeks #45 09/26/23 topical cream grams cefuroxime axetil 500 mg tablet 500 mg PO Q12H #14 tabs 07/18/24 ampicillin 500 mg capsule 500 mg PO QID 7 days #28 caps 07/23/24 acetaminophen 500 mg tablet 1,000 mg (2 x 500 mg) PO Q8H 20 03/23/25 days #120 tabs ibuprofen 400 mg tablet 400 mg PO Q8H 10 days #30 tabs 03/23/25 methylprednisolone 4 mg tablets in 4 mg PO PER PKG DIR #21 ea 03/23/25 a dose pack (Medrol (José Miguel)) amoxicillin 875 mg-potassium 1 tab PO BID #14 tabs 03/24/25 clavulanate 125 mg tablet Allergies Allergy/AdvReac Type Severity Reaction Status Date / Time No Known Allergies (No Known Allergy Verified 03/24/25 04:39 Allergies*) Review of Systems Review of Systems: Yes all other systems are reviewed and are negative [facility] Past Medical History Medical History (Updated 03/24/25 @ 04:57 by Israel Arriola PA-C) Carpal tunnel syndrome on right Atrophy of right kidney Surgical History (Updated 11/28/21 @ 09:34 by Myriam Morales MA) History of tonsillectomy and adenoidectomy H/O kidney removal Family History Family History (Updated 11/28/21 @ 09:35 by Myriam Morales MA) Mother Non-Hodgkin lymphoma Father Non-Hodgkin lymphoma Social History Social History (Updated 11/28/21 @ 09:35 by Myriam Morales MA) Patient Tobacco Use Status: Never used Tobacco Physical Exam Vital Signs: Vital Signs: Last Vital Signs Temp 97.7 F 03/24/25 04:37 Pulse 81 03/24/25 04:37 Resp 18 03/24/25 04:37 BP 137/64 03/24/25 04:37 Pulse Ox 98 03/24/25 04:37 O2 Del Method Room Air 03/24/25 04:37 BMI result Body Mass Index 32.9 CONSTITUTIONAL: The patient appears non-toxic, well nourished and in no acute distress. Vital signs as documented. HEAD: Atraumatic, normocephalic. EYES: EOMs grossly intact, pupils equal, conjunctiva clear, no exudate. ENT: Nares patent, no discharge. Airway patent, no audible stridor, visible mucosa is pink and moist without noted lesions. There is swelling noted of the left lower jaw, no identifiable fluctuance or drainable abscess. NECK: trachea is midline, no obvious masses or gross abnormalities. CHEST: Symmetric movement, normal appearance. LUNGS: Non-labored work of breathing. CARDIAC: No evidence of hypoperfusion. ABDOMEN: Nondistended, no obvious injury. : Deferred. EXTREMITIES: Moves all extremities spontaneously without reported pain. No obvious injury or deformity noted. NEURO: Alert and oriented x3, CN II-XII appear grossly intact. Cerebellar Functioning grossly intact. Speech clear and appropriate. SKIN: Warm, dry, color appropriate. No rashes or lesions noted. Medical Decision Making Medical Decision Making MDM Narrative: 4:54 AM 03/24/2025 (Akilah ARGUELLO): The patient is a 34-year-old female who presents with swelling in the lower left jaw that began yesterday. The patient reports she broke her 1st molar on that side approximately 1?2?weeks ago while eating, denies trauma. She notes associated nausea but denies fever and vomiting. She has a scheduled dental appointment today at?3:30?PM a presenting to the ED as the swelling dramatically increased in the past 4-6 hours. Patient is requesting antibiotic therapy and ibuprofen. On exam patient has swelling of the left lower jaw, no identifiable fluctuance or drainable fluid collection. Patient appears nontoxic. Patient will be treated with Augmentinand ibuprofen, and discharged to follow up with dentist for definitive care. Admission/Observation Consideration of admission/observation: Escalation of care including admission/observation considered Discharge Plan Discharge Clinical Impression: Dental abscess Patient Disposition: Home, Self-Care Instructions: Dental Abscess (ED) Additional Instructions: Thank you for choosing [facility] Emergency Department for your care today. You were seen today for evaluation of dental pain. You are being treated for a dental infection with antibiotics. Please take the antibiotics as prescribed until finished. It is extremely important that you follow up with your dentist for definitive dental care. You should take alternating (staggered) doses of ibuprofen 600mg and Tylenol 1000mg every 4 hours as needed for any additional pain. Please return to the emergency department if you develop worsening pain, swelling, difficulty swallowing, difficulty breathing, fever over 100.4 which does not improve with Tylenol or ibuprofen, or any other concerning symptoms. Prescriptions: New amoxicillin-pot clavulanate 875-125 mg tablet 1 tab PO BID Qty: 14 0RF No Action penicillin V potassium 500 mg tablet 500 mg PO BID Qty: 20 0RF azithromycin 250 mg tablet 250 mg PO DAILY 4 Days Qty: 4 0RF Rx Instructions: start on day 2 of therapy amoxicillin-pot clavulanate 875-125 mg tablet 1 tab PO BID Qty: 13 0RF amoxicillin-pot clavulanate 875-125 mg tablet 1 tab PO Q12H 5 Days Qty: 10 0RF azithromycin 250 mg tablet See Rx Instructions .ROUTE .COMPLEX Qty: 6 0RF Rx Instructions: For 250 mg dose pack: take 500 mg today (day 1), then 250 mg for 4 days (days 2-5) betamethasone dipropionate 0.05 % cream 1 appl topical DAILY 14 Days Qty: 45 0RF cefuroxime axetil 500 mg tablet 500 mg PO Q12H Qty: 14 0RF ampicillin 500 mg capsule 500 mg PO QID 7 Days Qty: 28 0RF acetaminophen 500 mg tablet 1,000 mg PO Q8H 20 Days Qty: 120 0RF ibuprofen 400 mg tablet 400 mg PO Q8H 10 Days Qty: 30 0RF methylprednisolone [Medrol (José Miguel)] 4 mg tablets,dose pack 4 mg PO PER PKG DIR Qty: 21 0RF valacyclovir 1 gram tablet 1,000 mg PO DAILY Qty: 30 1RF Rx Instructions: take daily for 5 days for outbreak Print Language: Ethiopian
[2025-03-24 05:07] VITALS: BP 137/64; PULSE 81; RESP 18; TEMP 36.5; O2SAT 98
== END 2025-03-24 05:10 | disposition home or self-care (01) ==
PROVIDERS: Emergency Provider Emergency Medicine
DX: K04.7 Periapical abscess without sinus (principal)
CPT/HCPCS: 99283; 99284